=== PATIENT | male | born 2000 | race Caucasian/White ===

== ENCOUNTER 2018-08-14 22:38 | Emergency (ER) | payer BC ==
[2018-08-14] MEDS ORDERED: OXYMETAZOLINE NASAL SPRAY 15 ML BTTL BNAS PRN (23:23)
[2018-08-14] MEDS ORDERED: HYDROcodone 7.5MG/APAP 325MG 1 EA TAB PO ONE (23:23)
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
[2018-08-15 00:08] VITALS: BP 120/76; TEMP 97.5; O2SAT 98
== END 2018-08-14 23:46 | disposition home or self-care (01) ==
LOC: ER 22:38
DX: T70.0XXA Otitic barotrauma, initial encounter (principal); X58.XXXA Exposure to other specified factors, initial encounter; Y93.12 Activity, springboard and platform diving; Y92.9 Unspecified place or not applicable